=== PATIENT | female | born 1950 | race Caucasian/White ===

== ENCOUNTER → 2016-05-06 | Outpatient (CLI) | payer OTHER ==
[~2016-05-06] MED LIST: ACETAMINOPHEN325 M1 PO; ACETAMINOPHEN500 MG PO; ADVAIR 100/501 DISK IH; ADVAIR 250/501 DISK IH; ADVAIR HFA120 INHALA IH; ASPIR-LOW81 MG PO; ASPIRIN81 M2 PO; ATORVASTATIN CA40 MG PO; ATORVASTATIN CA80 MG PO; ATROVENT H200 INHALA IH; Advair HFA 45/21 IH; Aspirin E.C. PO; BISAC-EVAC10 MG PR; BISACODYL5 MG PO; CILOSTAZOL50 MG PO; CIPRO500 MG PO; CITALOPRAM HBR10 MG PO; CLOPIDOGREL75 MG PO; COLACE100 MG PO; DOCUSATE SODIU100 MG PO; ENDOCET 5-3251 EACH PO; ENEMA BOTTLE1 EACH MC; ENEMA133 M2 PR; IPRATROPIUM BRO30 ML BOTH NARES; KEFLEX500 MG PO; KEPPRA500 MG PO; LACTAID ULT9000 UNIT PO; LEVETIRACETAM500 MG PO; LIDOCAINE700 MG TD; LO-DOSE ASPIRIN81 M1 PO; LOPRESSOR25 MG PO; LORAZEPAM0.5 MG PO; METOPROLOL SUCC25 MG PO; MIDODRINE HCL5 MG PO; MILK OF MAGN PO; MIRTAZAPINE7.5 MG PO; NORVASC10 MG PO; OMEPRAZOLE20 MG PO; PANTOPRAZOLE SO40 MG PO; PRILOSEC20 MG PO; PROAIR HFA8.5 GM IH; PROAIR RESPICL90 MCG IH; ROBAFEN CF SYR118 M1 PO; ROBITUSSIN100 MG/5 M PO; ROCEPHIN1000 MG IV; SENNA8.6 MG PO; SPIRIVA RESPIMAT4 GM IH; TUMS500 MG PO; TYLENOL REGULA325 MG PO; Tylenol Regular Stre PO; VENTOLIN HFA18 GM IH; VENTOLIN HFA18 GM PO; VENTOLIN IH; ZYRTEC10 M2 PO; ZYRTEC10 M3 PO
== END ==
LOC: RAD 08:41 → EDSTATUS 09:00
DX: J90 Pleural effusion, not elsewhere classified (principal)

== ENCOUNTER 2016-05-14 16:59 | Inpatient (IN) | payer OTHER ==
[~2016-05-14] VITALS: Ht 162.6 cm; Wt 60.1 kg
[~2016-05-14 16:59] MED LIST changes: -ADVAIR HFA120 INHALA IH; -ASPIR-LOW81 MG PO; -ASPIRIN81 M2 PO; -COLACE100 MG PO; -IPRATROPIUM BRO30 ML BOTH NARES; -LIDOCAINE700 MG TD; -PRILOSEC20 MG PO; -PROAIR HFA8.5 GM IH; -ROBITUSSIN100 MG/5 M PO; -SPIRIVA RESPIMAT4 GM IH; -VENTOLIN HFA18 GM IH
[2016-05-14 17:41] LABS: HEMATOCRIT 39.4 % (36.0-46.0); MCH 32.4 PG (29.0-34.0); MCHC 31.7 G/DL (30.0-36.0); MCV 102.1 FL (83-99); PLATELET COUNT 152 K/uL (156-360); RBC DIS.WIDTH-CV 12.3 % (11.8-14.6); RBC DIS.WIDTH-SD 45.7 % (39-53); RED BLOOD COUNT 3.86 M/uL (3.80-5.20); WHITE BLOOD COUNT 4.2 K/uL (4.1-10.2)
[2016-05-14 17:50] LABS: CHLORIDE 104 mEq/L (99-109); POTASSIUM 3.9 mEq/L (3.7-5.4); SODIUM 141 mEq/L (136-147)
[2016-05-14 17:52] LABS: GLUCOSE 89 mg/dL (70-99)
[2016-05-14 17:53] LABS: ANION GAP 9 MEQ/L (2-14)
[2016-05-14 17:56] LABS: GFR ESTIMATE (CALCULATED) 53 mL/min/
[2016-05-14 17:57] LABS: UREA NITROGEN (BUN) 20 mg/dL (9-23)
[2016-05-14] MEDS ORDERED: COLACE100 MG PO (19:30)
[2016-05-14] MEDS ORDERED: ASPIRIN81 M2 PO (19:33)
[2016-05-14] MEDS ORDERED: PROAIR HFA8.5 GM IH (19:36)
[2016-05-14] MEDS ORDERED: ROBITUSSIN100 MG/5 M PO (19:36)
[2016-05-14] MEDS ORDERED: IPRATROPIUM BRO30 ML BOTH NARES (19:37)
[2016-05-14 22:10] VITALS: BP 134/74
[2016-05-15 02:24] LABS: D-DIMER ELISA 1.24 mg/L FEU (< 0.57); INTER. NORMALIZED RATIO 1.1; PROTHROMBIN TIME 10.7 (9.2-11.2); PTT 26.4 (25-32)
[2016-05-15 06:47] LABS: MCH 31.8 PG (29.0-34.0); MCHC 31.2 G/DL (30.0-36.0); MCV 101.9 FL (83-99); MEAN PLAT.VOLUME 9.1 uM^3 (9.5-12.4); PLATELET COUNT 154 K/uL (156-360); RBC DIS.WIDTH-CV 12.4 % (11.8-14.6); RBC DIS.WIDTH-SD 46.1 % (39-53); RED BLOOD COUNT 4.22 M/uL (3.80-5.20); WHITE BLOOD COUNT 3.8 K/uL (4.1-10.2)
[2016-05-15 07:08] LABS: ANION GAP 9 MEQ/L (2-14); CHLORIDE 103 MEQ/L (99-109); GFR ESTIMATE (CALCULATED) 53 mL/min/; GLUCOSE 79 mg/dL (70-99); POTASSIUM 3.6 MEQ/L (3.7-5.4); SAMPLE HEMOLYSIS CHECK 0; SAMPLE ICTERIC CHECK 0; SAMPLE LIPEMIA CHECK 0; SODIUM 144 MEQ/L (136-147); UREA NITROGEN (BUN) 18 mg/dL (9-23)
[2016-05-15 07:16] VITALS: BP 106/81
[2016-05-15 10:34] VITALS: BP 123/75
[2016-05-15 16:10] VITALS: BP 119/70
[2016-05-15 20:30] VITALS: BP 117/57
[2016-05-16 00:49] VITALS: BP 116/71
[2016-05-16 04:45] VITALS: BP 108/69
[2016-05-16 06:45] LABS: EOSINOPHIL (%) 4.4 % (0-5); EOSINOPHIL COUNT 0.2 K/uL (0-0.3); HEMATOCRIT 41.1 % (36.0-46.0); IMMATURE GRANULOCYTE (%) 0.9 % (0.0-0.7); LYMPHOCYTE COUNT 0.6 K/uL (1.0-2.8); MCH 32.1 PG (29.0-34.0); MCHC 31.1 G/DL (30.0-36.0); MEAN PLAT.VOLUME 9.4 uM^3 (9.5-12.4); MONOCYTE (%) 11.8 % (3-12); MONOCYTE COUNT 0.5 K/uL (0-0.8); NEUTROPHIL (%) 68.8 % (45-76); PLATELET COUNT 130 K/uL (156-360); RBC DIS.WIDTH-CV 12.4 % (11.8-14.6); RBC DIS.WIDTH-SD 46.9 % (39-53); RED BLOOD COUNT 3.99 M/uL (3.80-5.20); WHITE BLOOD COUNT 4.3 K/uL (4.1-10.2)
[2016-05-16 07:30] LABS: ALKALINE PHOSPHATASE 69 IU/L (3-129); ANION GAP 9 MEQ/L (2-14); CHLORIDE 104 MEQ/L (99-109); GFR ESTIMATE (CALCULATED) 48 mL/min/; GLUCOSE 73 mg/dL (70-99); POTASSIUM 4.3 MEQ/L (3.7-5.4); SAMPLE HEMOLYSIS CHECK 0; SAMPLE ICTERIC CHECK 0; SAMPLE LIPEMIA CHECK 0; SODIUM 142 MEQ/L (136-147); TOTAL BILIRUBIN 0.5 MG/DL (0.0-1.0); UREA NITROGEN (BUN) 19 mg/dL (9-23)
[2016-05-16 08:00] VITALS: BP 17/75
[2016-05-16 11:24] VITALS: BP 106/62
[2016-05-16 16:34] VITALS: BP 108/67
[2016-05-16 22:05] VITALS: BP 123/72
[2016-05-17] VITALS (8 sets, daily range): BP systolic 99–161; BP diastolic 57–86
[2016-05-17 08:06] LABS: EOSINOPHIL (%) 4.3 % (0-5); EOSINOPHIL COUNT 0.2 K/uL (0-0.3); HEMATOCRIT 39.7 % (36.0-46.0); IMMATURE GRANULOCYTE (%) 0.4 % (0.0-0.7); INSTRUMENT ABS NEUTROPHIL CT 3.7 K/uL; LYMPHOCYTE COUNT 0.6 K/uL (1.0-2.8); MCH 32.1 PG (29.0-34.0); MCHC 31.2 G/DL (30.0-36.0); MCV 102.8 FL (83-99); MONOCYTE (%) 8.8 % (3-12); MONOCYTE COUNT 0.4 K/uL (0-0.8); NEUTROPHIL (%) 74.8 % (45-76); NEUTROPHIL COUNT 3.7 K/uL (1.8-6.4); PLATELET COUNT 122 K/uL (156-360); RBC DIS.WIDTH-CV 12.9 % (11.8-14.6); RBC DIS.WIDTH-SD 48.6 % (39-53); RED BLOOD COUNT 3.86 M/uL (3.80-5.20); WHITE BLOOD COUNT 4.9 K/uL (4.1-10.2)
[2016-05-17] MEDS ORDERED: LIDOCAINE700 MG TD (10:43)
[2016-05-17 10:49] LABS: ANION GAP 10 MEQ/L (2-14); CHLORIDE 106 MEQ/L (99-109); POTASSIUM 4.3 MEQ/L (3.7-5.4); SAMPLE HEMOLYSIS CHECK 0; SAMPLE ICTERIC CHECK 0; SAMPLE LIPEMIA CHECK 0; SODIUM 143 MEQ/L (136-147)
[2016-05-17 10:57] LABS: GFR ESTIMATE (CALCULATED) 53 mL/min/; GLUCOSE 85 mg/dL (70-99); UREA NITROGEN (BUN) 21 mg/dL (9-23)
[2016-05-17 18:03] LABS: HEMATOCRIT 42.7 % (36.0-46.0); MCV 102.4 FL (83-99)
[2016-05-18 03:26] VITALS: BP 134/71
[2016-05-18 08:43] VITALS: BP 113/64; BP 138/61
[2016-05-18 09:40] LABS: TYPE OF FLUID PLEURAL
[2016-05-18 09:59] LABS: BODY FLUID RBC'S 2000 /MM^3 (0-100); BODY FLUID WBC'S 514 /MM^3 (0-500)
[2016-05-18 10:17] LABS: BODY FLUID LDH 104 IU/L; BODY FLUID PROTEIN 3.9 G/DL
[2016-05-18 10:43] LABS: BODY FLUID EOSINOPHILS 1 % (0-25); MONONUCLEAR WBC'S 84 %; POLYNUCLEAR WBC'S 15 % (0-25)
[2016-05-18 11:04] VITALS: BP 110/60
[2016-05-18 17:17] VITALS: BP 107/73
[2016-05-19] VITALS (7 sets, daily range): BP systolic 100–116; BP diastolic 66–77
[2016-05-19 07:08] LABS: EOSINOPHIL COUNT 0.3 K/uL (0-0.3); HEMATOCRIT 40.7 % (36.0-46.0); IMMATURE GRANULOCYTE (%) 0.9 % (0.0-0.7); IMMATURE GRANULOCYTE COUNT 0.1 K/uL; INSTRUMENT ABS NEUTROPHIL CT 3.9 K/uL; LYMPHOCYTE COUNT 0.7 K/uL (1.0-2.8); MCH 32.1 PG (29.0-34.0); MCV 103.6 FL (83-99); MEAN PLAT.VOLUME 9.3 uM^3 (9.5-12.4); MONOCYTE (%) 11.3 % (3-12); MONOCYTE COUNT 0.6 K/uL (0-0.8); NEUTROPHIL (%) 68.3 % (45-76); NEUTROPHIL COUNT 3.9 K/uL (1.8-6.4); PLATELET COUNT 143 K/uL (156-360); RBC DIS.WIDTH-CV 12.8 % (11.8-14.6); RBC DIS.WIDTH-SD 48.8 % (39-53); RED BLOOD COUNT 3.93 M/uL (3.80-5.20); WHITE BLOOD COUNT 5.7 K/uL (4.1-10.2)
[2016-05-19 07:39] LABS: ANION GAP 10 MEQ/L (2-14); CHLORIDE 102 MEQ/L (99-109); GFR ESTIMATE (CALCULATED) 53 mL/min/; GLUCOSE 79 mg/dL (70-99); POTASSIUM 3.9 MEQ/L (3.7-5.4); SAMPLE HEMOLYSIS CHECK 0; SAMPLE ICTERIC CHECK 0; SAMPLE LIPEMIA CHECK 0; SODIUM 142 MEQ/L (136-147); UREA NITROGEN (BUN) 19 mg/dL (9-23)
[2016-05-20 03:49] VITALS: BP 111/65
[2016-05-20 07:06] LABS: EOSINOPHIL (%) 6.7 % (0-5); EOSINOPHIL COUNT 0.3 K/uL (0-0.3); HEMATOCRIT 41.3 % (36.0-46.0); IMMATURE GRANULOCYTE COUNT 0.1 K/uL; INSTRUMENT ABS NEUTROPHIL CT 3.2 K/uL; LYMPHOCYTE COUNT 0.6 K/uL (1.0-2.8); MCH 31.7 PG (29.0-34.0); MCV 102.2 FL (83-99); MONOCYTE (%) 12.3 % (3-12); MONOCYTE COUNT 0.6 K/uL (0-0.8); NEUTROPHIL (%) 66.7 % (45-76); NEUTROPHIL COUNT 3.2 K/uL (1.8-6.4); PLATELET COUNT 143 K/uL (156-360); RBC DIS.WIDTH-CV 12.8 % (11.8-14.6); RBC DIS.WIDTH-SD 47.7 % (39-53); RED BLOOD COUNT 4.04 M/uL (3.80-5.20); WHITE BLOOD COUNT 4.8 K/uL (4.1-10.2)
[2016-05-20 07:44] LABS: ANION GAP 8 MEQ/L (2-14); CHLORIDE 103 MEQ/L (99-109); GFR ESTIMATE (CALCULATED) 53 mL/min/; POTASSIUM 3.8 MEQ/L (3.7-5.4); SAMPLE HEMOLYSIS CHECK 0; SAMPLE ICTERIC CHECK 0; SAMPLE LIPEMIA CHECK 0; SODIUM 142 MEQ/L (136-147); UREA NITROGEN (BUN) 17 mg/dL (9-23)
[2016-05-20 07:49] LABS: GLUCOSE 100 mg/dL (70-99)
[2016-05-20 08:00] VITALS: BP 108/71
[2016-05-20 15:32] VITALS: BP 88/60
[2016-05-20 16:00] VITALS: BP 116/77
[2016-05-20 19:20] VITALS: BP 97/52
[2016-05-21] VITALS: BP 94/55
[2016-05-21 07:35] LABS: EOSINOPHIL (%) 4.9 % (0-5); EOSINOPHIL COUNT 0.3 K/uL (0-0.3); HEMATOCRIT 39.8 % (36.0-46.0); IMMATURE GRANULOCYTE (%) 0.7 % (0.0-0.7); INSTRUMENT ABS NEUTROPHIL CT 3.9 K/uL; LYMPHOCYTE COUNT 0.5 K/uL (1.0-2.8); MCH 32.1 PG (29.0-34.0); MCHC 30.9 G/DL (30.0-36.0); MCV 103.9 FL (83-99); MEAN PLAT.VOLUME 9.5 uM^3 (9.5-12.4); MONOCYTE (%) 11.6 % (3-12); MONOCYTE COUNT 0.6 K/uL (0-0.8); NEUTROPHIL (%) 72.3 % (45-76); NEUTROPHIL COUNT 3.9 K/uL (1.8-6.4); PLATELET COUNT 141 K/uL (156-360); RBC DIS.WIDTH-CV 13.2 % (11.8-14.6); RBC DIS.WIDTH-SD 49.9 % (39-53); RED BLOOD COUNT 3.83 M/uL (3.80-5.20); WHITE BLOOD COUNT 5.3 K/uL (4.1-10.2)
[2016-05-21 07:45] VITALS: BP 96/68
[2016-05-21 07:59] LABS: ANION GAP 10 MEQ/L (2-14); CHLORIDE 104 MEQ/L (99-109); GFR ESTIMATE (CALCULATED) 53 mL/min/; GLUCOSE 90 mg/dL (70-99); POTASSIUM 4.1 MEQ/L (3.7-5.4); SAMPLE HEMOLYSIS CHECK 0; SAMPLE ICTERIC CHECK 0; SAMPLE LIPEMIA CHECK 0; SODIUM 144 MEQ/L (136-147); UREA NITROGEN (BUN) 16 mg/dL (9-23)
[2016-05-21 11:35] VITALS: BP 93/61
[2016-05-21 15:49] VITALS: BP 111/57
[2016-05-21 23:24] VITALS: BP 115/63
[2016-05-22 07:13] LABS: EOSINOPHIL (%) 4.5 % (0-5); EOSINOPHIL COUNT 0.2 K/uL (0-0.3); HEMATOCRIT 38.9 % (36.0-46.0); IMMATURE GRANULOCYTE (%) 0.6 % (0.0-0.7); INSTRUMENT ABS NEUTROPHIL CT 3.1 K/uL; LYMPHOCYTE COUNT 0.6 K/uL (1.0-2.8); MCH 31.6 PG (29.0-34.0); MCHC 30.8 G/DL (30.0-36.0); MCV 102.4 FL (83-99); MEAN PLAT.VOLUME 9.1 uM^3 (9.5-12.4); MONOCYTE (%) 14.6 % (3-12); MONOCYTE COUNT 0.7 K/uL (0-0.8); NEUTROPHIL (%) 66.8 % (45-76); NEUTROPHIL COUNT 3.1 K/uL (1.8-6.4); PLATELET COUNT 147 K/uL (156-360); RBC DIS.WIDTH-CV 13.2 % (11.8-14.6); RBC DIS.WIDTH-SD 49.7 % (39-53); WHITE BLOOD COUNT 4.7 K/uL (4.1-10.2)
[2016-05-22 07:31] VITALS: BP 108/67
[2016-05-22 07:38] LABS: ANION GAP 9 MEQ/L (2-14); CHLORIDE 106 MEQ/L (99-109); GFR ESTIMATE (CALCULATED) > 59 mL/min/; GLUCOSE 90 mg/dL (70-99); SAMPLE HEMOLYSIS CHECK 0; SAMPLE ICTERIC CHECK 0; SAMPLE LIPEMIA CHECK 0; SODIUM 145 MEQ/L (136-147); UREA NITROGEN (BUN) 15 mg/dL (9-23)
[2016-05-22 08:03] LABS: PROTHROMBIN TIME 10.1 (9.2-11.2); PTT 25.9 (25-32)
[2016-05-22 10:04] VITALS: BP 85/65
[2016-05-22] MEDS ORDERED: VENTOLIN HFA18 GM IH (12:29)
[2016-05-22] MEDS ORDERED: BISAC-EVAC10 MG PR (12:29)
[2016-05-22] MEDS ORDERED: ADVAIR HFA120 INHALA IH (12:29)
[2016-05-22] MEDS ORDERED: CITALOPRAM HBR10 MG PO (12:29)
[2016-05-22] MEDS ORDERED: ASPIR-LOW81 MG PO (12:29)
[2016-05-22] MEDS ORDERED: LIDOCAINE700 MG TD (12:29)
[2016-05-22] MEDS ORDERED: SPIRIVA RESPIMAT4 GM IH (12:29)
[2016-05-22] MEDS ORDERED: PRILOSEC20 MG PO (12:29)
[2016-05-22] MEDS ORDERED: MIRTAZAPINE7.5 MG PO (12:29)
[2016-05-22] MEDS ORDERED: ATORVASTATIN CA40 MG PO (12:29)
[2016-05-22] MEDS ORDERED: LEVETIRACETAM500 MG PO (12:29)
[2016-05-22] MEDS ORDERED: CILOSTAZOL50 MG PO (12:29)
== END 2016-05-22 16:38 | DRG 187 ==
LOC: EME 16:59 → 2EAST 20:11 → EDOF 20:11 → 2EAST 22:07
PROVIDERS: Emergency Medicine; Hospitalist; Internal Medicine
PROC: 0W9B3ZX Drainage of Left Pleural Cavity, Percutaneous Approach, Diagnostic (ICD-10-PCS; principal; 2016-05-18)
DX: J90 Pleural effusion, not elsewhere classified (principal); J98.11 Atelectasis; I25.5 Ischemic cardiomyopathy; N18.3 Chronic kidney disease, stage 3 (moderate); L89.151 Pressure ulcer of sacral region, stage 1; I12.9 Hypertensive chronic kidney disease with stage 1 through stage 4 chronic kidney disease, or unspecified chronic kidney disease; Z66 Do not resuscitate; I25.10 Atherosclerotic heart disease of native coronary artery without angina pectoris; J44.9 Chronic obstructive pulmonary disease, unspecified; E78.5 Hyperlipidemia, unspecified; G40.909 Epilepsy, unspecified, not intractable, without status epilepticus; M24.50 Contracture, unspecified joint; N95.0 Postmenopausal bleeding; F41.9 Anxiety disorder, unspecified; J94.2 Hemothorax; D25.9 Leiomyoma of uterus, unspecified; R27.0 Ataxia, unspecified; R32 Unspecified urinary incontinence; L65.9 Nonscarring hair loss, unspecified; J84.10 Pulmonary fibrosis, unspecified; Z74.01 Bed confinement status; I25.2 Old myocardial infarction; Z91.041 Radiographic dye allergy status; Z95.5 Presence of coronary angioplasty implant and graft; Z91.040 Latex allergy status; Z85.118 Personal history of other malignant neoplasm of bronchus and lung; Z85.841 Personal history of malignant neoplasm of brain; Z86.73 Personal history of transient ischemic attack (TIA), and cerebral infarction without residual deficits; Z79.02 Long term (current) use of antithrombotics/antiplatelets; Z87.891 Personal history of nicotine dependence
CPT/HCPCS: 70450; 71010; 71020; 71250; 76856; 80048; 80053; 82607; 82746; 82945; 83605; 83615 91; 83880; 84157; 85014; 85018; 85025; 85027; 85379; 85610; 85730; 87040; 87070; 87205; 88108; 88305; 89051; 93005; 94640; 94640 76; 99202; 99281; 99285; J1644; J1940; J1956

== ENCOUNTER → 2016-07-01 | Outpatient (CLI) | payer OTHER ==
[~2016-07-01] MED LIST changes: +ADVAIR HFA120 INHALA IH; +ASPIR-LOW81 MG PO; +ASPIRIN81 M2 PO; +COLACE100 MG PO; +IPRATROPIUM BRO30 ML BOTH NARES; +LIDOCAINE700 MG TD; +PRILOSEC20 MG PO; +PROAIR HFA8.5 GM IH; +ROBITUSSIN100 MG/5 M PO; +SPIRIVA RESPIMAT4 GM IH; +VENTOLIN HFA18 GM IH
== END ==
LOC: RAD 13:39 → EDSTATUS 14:00
PROC: 0W9B3ZZ Drainage of Left Pleural Cavity, Percutaneous Approach (ICD-10-PCS; principal; 2016-07-01)
DX: J90 Pleural effusion, not elsewhere classified (principal)

== ENCOUNTER → 2016-12-14 | Outpatient (CLI) | payer OTHER | LOC: RAD 08:40 → EDSTATUS 09:00 | PROC: BB4BZZZ Ultrasonography of Pleura (ICD-10-PCS; principal; 2016-12-14) | DX: Z53.09 Procedure and treatment not carried out because of other contraindication (principal) | CPT/HCPCS: 76604 ==

== ENCOUNTER → 2017-01-14 | Outpatient (CLI) | payer OTHER | LOC: EDSTATUS 09:00 → RAD 09:00 | PROC: 0W9B3ZZ Drainage of Left Pleural Cavity, Percutaneous Approach (ICD-10-PCS; principal; 2017-01-14) | DX: J90 Pleural effusion, not elsewhere classified (principal); J44.9 Chronic obstructive pulmonary disease, unspecified | CPT/HCPCS: 76942 ==

== ENCOUNTER → 2017-03-02 | Outpatient (CLI) | payer OTHER ==
[~2017-03-02] MED LIST changes: +ARICEPT5 MG PO; +BREO ELLIPTA I1 EACH IH; +INCRUSE ELLI62.5 MCG IH
== END ==
LOC: RAD 10:30 → EDSTATUS 11:00
PROC: 0W9B3ZZ Drainage of Left Pleural Cavity, Percutaneous Approach (ICD-10-PCS; principal; 2017-03-02)
DX: J91.8 Pleural effusion in other conditions classified elsewhere (principal)
CPT/HCPCS: 76942

== ENCOUNTER → 2017-06-28 | Outpatient (CLI) | payer OTHER ==
[~2017-06-28] MED LIST changes: +ROBITUSSIN DM118 ML PO
== END ==
LOC: RAD 13:46 → EDSTATUS 14:00
PROC: 0W9B3ZZ Drainage of Left Pleural Cavity, Percutaneous Approach (ICD-10-PCS; principal; 2017-06-28)
DX: J90 Pleural effusion, not elsewhere classified (principal)
CPT/HCPCS: 76942